=== PATIENT | female | born 2000 | race Caucasian/White ===

== ENCOUNTER 2020-07-15 18:37 | Emergency (ER) | payer OTHER ==
[~2020-07-15 18:37] MED LIST: BENTYL10 MG PO; LEVSIN-SL0.125 MG SL; MOBIC7.5 MG PO; NORCO 5-325 TA1 EACH PO; PREDNISONE20 MG PO; SKELAXIN800 MG PO; ZOFRAN4 MG PO; ZOFRAN8 MG PO; ZYRTEC10 M3 PO
[2020-07-15 20:31] LABS: BASOPHIL 0.3 % (0-2); EOSINOPHIL 1.1 % (0-5); HCT 46.6 % (37.0-47.0); HGB 14.5 g/dl (12.5-16.0); LYMPHOCYTE 27.2 % (15-48); MCH 26.5 pg (25.0-31.0); MCHC 31.1 g/dL (32.0-36.0); MCV 85.2 fL (78.0-100.0); MONOCYTE 6.8 % (0-12); MPV 9.3 fL (6.0-9.5); NEUTROPHIL 64.4 % (41-80); NRBC 0; PLT 382 K/uL (150-400); RBC 5.47 M/uL (4.20-5.40); RDW 13.4 % (11.5-14.0); WBC 6.5 K/uL (4.0-10.5)
[2020-07-15 20:36] LABS: BILIRUBIN NEGATIVE (NEGATIVE); BLOOD NEGATIVE Ery/uL (NEGATIVE); CLARITY CLEAR (CLEAR); COLOR YELLOW (YELLOW); GLUCOSE (U) NORMAL (NORMAL); LEUKOCYTES NEGATIVE Leu/uL (NEGATIVE); NITRITE NEGATIVE (NEGATIVE); PROTEIN NEGATIVE (NEGATIVE); UROBILINOGEN 0.2 mg/dL (0.2-1.0)
[2020-07-15 20:38] LABS: AMPHETAMINES NEGATIVE (NEGATIVE); BARBITURATES NEGATIVE (NEGATIVE); ECSTASY (MDMA) NEGATIVE (NEGATIVE); MARIJUANA (THC) NEGATIVE (NEGATIVE); METHADONE NEGATIVE (NEGATIVE); OPIATES NEGATIVE (NEGATIVE); OXYCODONE NEGATIVE (NEGATIVE)
[2020-07-15 20:44] LABS: ALBUMIN 3.9 g/dL (3.4-5.0); BILIRUBIN - TOTAL 0.4 mg/dL (0.2-1.0); BUN/CREAT RATIO (CALC) 11.8 RATIO; CREATININE 0.68 mg/dL (0.51-0.95); GLOBULIN (CALCULATION) 4.6 g/dL; POTASSIUM 3.8 mmol/L (3.5-5.1); TOTAL PROTEIN 8.5 g/dL (6.4-8.2)
[2020-08-29] MEDS ORDERED: PRISTIQ50 MG PO (11:20)
[2020-08-29] MEDS ORDERED: NEXPLANON68 MG SUBD (11:23)
== END 2020-07-15 21:52 | disposition home or self-care (01) ==
LOC: FER 18:37
PROVIDERS: Emergency Medicine; Nurse Practitioner Family
DX: R10.84 Generalized abdominal pain (principal); R11.2 Nausea with vomiting, unspecified; R19.7 Diarrhea, unspecified; R63.0 Anorexia; F32.9 Major depressive disorder, single episode, unspecified; Z88.6 Allergy status to analgesic agent; Z79.899 Other long term (current) drug therapy
CPT/HCPCS: 36415; 80053; 80305; 81003; 82150; 83690; 85025; 99284

== ENCOUNTER 2020-07-20 03:29 | Emergency (ER) | payer OTHER ==
[2020-07-20 04:58] LABS: BASOPHIL 0.4 % (0-2); BILIRUBIN NEGATIVE (NEGATIVE); BLOOD NEGATIVE Ery/uL (NEGATIVE); CLARITY CLEAR (CLEAR); COLOR YELLOW (YELLOW); EOSINOPHIL 0.7 % (0-5); GLUCOSE (U) NORMAL (NORMAL); HCT 42.5 % (37.0-47.0); HGB 13.5 g/dl (12.5-16.0); LEUKOCYTES NEGATIVE Leu/uL (NEGATIVE); LYMPHOCYTE 25.3 % (15-48); MCH 27.1 pg (25.0-31.0); MCHC 31.8 g/dL (32.0-36.0); MCV 85.2 fL (78.0-100.0); MONOCYTE 6.2 % (0-12); MPV 9.7 fL (6.0-9.5); NEUTROPHIL 67.2 % (41-80); NITRITE NEGATIVE (NEGATIVE); NRBC 0; PLT 351 K/uL (150-400); PROTEIN NEGATIVE (NEGATIVE); RBC 4.99 M/uL (4.20-5.40); RDW 13.3 % (11.5-14.0); SPECIFIC GRAVITY 1.025 (1.001-1.030); UROBILINOGEN 0.2 mg/dL (0.2-1.0); WBC 8.4 K/uL (4.0-10.5); pH 5.5 (5.0-9.0)
[2020-07-20 05:07] LABS: ALBUMIN 3.8 g/dL (3.4-5.0); BILIRUBIN - TOTAL 0.2 mg/dL (0.2-1.0); BUN/CREAT RATIO (CALC) 11.1 RATIO; C-REACTIVE PROTEIN 1.2 mg/dL (<=0.90); CREATININE 0.63 mg/dL (0.51-0.95); GLOBULIN (CALCULATION) 4.2 g/dL; POTASSIUM 3.5 mmol/L (3.5-5.1)
[2020-07-20] MEDS ORDERED: LEVSIN-SL0.125 M1 PO ×3 (07:34→07:43)
[2020-07-20] MEDS ORDERED: PHENERGAN25 M1 PO ×3 (07:34→07:43)
[2020-07-20] MEDS ORDERED: PROMETHEGA12.5 MG/SU PR ×3 (07:34→07:43)
[2020-08-29] MEDS ORDERED: PRISTIQ50 MG PO (11:20)
[2020-08-29] MEDS ORDERED: NEXPLANON68 MG SUBD (11:23)
== END 2020-07-20 07:51 | disposition home or self-care (01) ==
LOC: FER 03:29
PROVIDERS: Emergency Medicine Emergency Medical Services
DX: R10.84 Generalized abdominal pain (principal); R11.2 Nausea with vomiting, unspecified; R19.7 Diarrhea, unspecified; F41.9 Anxiety disorder, unspecified; F32.9 Major depressive disorder, single episode, unspecified; F17.290 Nicotine dependence, other tobacco product, uncomplicated; Z88.6 Allergy status to analgesic agent; Z79.899 Other long term (current) drug therapy
CPT/HCPCS: 36415; 80053; 81003; 82150; 83690; 85025; 86140; C9113; J2270; J2550; J7030; Q9967

== ENCOUNTER → 2020-09-05 | Day surgery (SDC) | payer OTHER ==
[~2020-09-05] MED LIST changes: +AMOXICILLIN500 MG PO; +LEVSIN-SL0.125 M1 PO; +NEXPLANON68 MG SUBD; +PHENERGAN25 M1 PO; +PRISTIQ50 MG PO; +PROMETHEGA12.5 MG/SU PR
[2020-09-05 08:13] LABS: HCG (URINE) SCREEN NEGATIVE (NEGATIVE)
== END | disposition home or self-care (01) ==
LOC: FAS 07:19
PROVIDERS: Student in an Organized Health Care Education/Training Program
DX: R10.84 Generalized abdominal pain (principal); R14.0 Abdominal distension (gaseous); R11.2 Nausea with vomiting, unspecified; R19.7 Diarrhea, unspecified; R63.4 Abnormal weight loss; F41.9 Anxiety disorder, unspecified; F32.9 Major depressive disorder, single episode, unspecified; K58.9 Irritable bowel syndrome, unspecified; M41.9 Scoliosis, unspecified; Z88.8 Allergy status to other drugs, medicaments and biological substances; Z88.6 Allergy status to analgesic agent; Z97.5 Presence of (intrauterine) contraceptive device; Z80.0 Family history of malignant neoplasm of digestive organs; Z79.899 Other long term (current) drug therapy; Z86.59 Personal history of other mental and behavioral disorders; Z98.890 Other specified postprocedural states; Z20.822 Contact with and (suspected) exposure to COVID-19
CPT/HCPCS: 84703; J2250; J2704; J7120

== ENCOUNTER 2020-12-25 21:39 | Emergency (ER) | payer OTHER ==
[~2020-12-25 21:39] MED LIST changes: -AMOXICILLIN500 MG PO
[2020-12-25 22:11] LABS: MONOSPOT (MONONUCLEOSIS) NEGATIVE (NEGATIVE)
[2020-12-25] MEDS ORDERED: AMOXICILLIN500 MG PO (22:25)
== END 2020-12-25 22:41 | disposition home or self-care (01) ==
LOC: FER 21:39
PROVIDERS: Emergency Medicine
DX: J02.9 Acute pharyngitis, unspecified (principal)
CPT/HCPCS: 86308; 87880; 99283

== ENCOUNTER 2021-03-18 04:32 | Emergency (ER) | payer SELFPAY ==
[~2021-03-18 04:32] MED LIST changes: +AMOXICILLIN500 MG PO
[2021-03-18 05:46] LABS: BASOPHIL 0.8 % (0-2); EOSINOPHIL 1.5 % (0-5); HCT 41.9 % (37.0-47.0); HGB 13.5 g/dl (12.5-16.0); LYMPHOCYTE 35.1 % (15-48); MCH 28.2 pg (25.0-31.0); MCHC 32.2 g/dL (32.0-36.0); MCV 87.7 fL (78.0-100.0); MONOCYTE 7.7 % (0-12); MPV 10.4 fL (6.0-9.5); NEUTROPHIL 54.6 % (41-80); NRBC 0; PLT 343 K/uL (150-400); RBC 4.78 M/uL (4.20-5.40); RDW 14.1 % (11.5-14.0); WBC 6.5 K/uL (4.0-10.5)
[2021-03-18 05:59] LABS: ALBUMIN 3.2 g/dL (3.4-5.0); BILIRUBIN - TOTAL 0.3 mg/dL (0.2-1.0); BUN/CREAT RATIO (CALC) 9.1 RATIO; C-REACTIVE PROTEIN 0.3 mg/dL (<=0.90); CREATININE 0.77 mg/dL (0.51-0.95); GLOBULIN (CALCULATION) 3.7 g/dL; MAGNESIUM 2.1 mg/dL (1.8-2.4); POTASSIUM 4.3 mmol/L (3.5-5.1); TOTAL PROTEIN 6.9 g/dL (6.4-8.2)
[2021-03-18 06:16] LABS: BILIRUBIN NEGATIVE (NEGATIVE); BLOOD NEGATIVE Ery/uL (NEGATIVE); CLARITY CLEAR (CLEAR); COLOR YELLOW (YELLOW); GLUCOSE (U) NORMAL (NORMAL); LEUKOCYTES NEGATIVE Leu/uL (NEGATIVE); NITRITE NEGATIVE (NEGATIVE); PROTEIN NEGATIVE (NEGATIVE); UROBILINOGEN 0.2 mg/dL (0.2-1.0)
[2021-03-18] MEDS ORDERED: PERCOCET 5-3251 EACH PO (06:45)
[2021-03-18] MEDS ORDERED: BACLOFEN 10MG T10 MG PO (06:45)
== END 2021-03-18 07:20 | disposition home or self-care (01) ==
LOC: FER 04:32
PROVIDERS: Emergency Medicine Emergency Medical Services
DX: R52 Pain, unspecified (principal); F17.290 Nicotine dependence, other tobacco product, uncomplicated; Z79.1 Long term (current) use of non-steroidal anti-inflammatories (NSAID); Z87.39 Personal history of other diseases of the musculoskeletal system and connective tissue
CPT/HCPCS: 36415; 80053; 81003; 82550; 83735; 84100; 85025; 86140; J1100; J1170; J1885; J2270; J2405; J7120

== ENCOUNTER 2021-05-12 23:31 | Emergency (ER) | payer OTHER ==
[~2021-05-12 23:31] MED LIST changes: +BACLOFEN 10MG T10 MG PO; +PERCOCET 5-3251 EACH PO
== END 2021-05-13 01:22 | disposition home or self-care (01) ==
LOC: FER 23:31
DX: U07.1 COVID-19 (principal); F17.200 Nicotine dependence, unspecified, uncomplicated; Z88.6 Allergy status to analgesic agent
CPT/HCPCS: 99284

== ENCOUNTER 2021-05-14 10:39 | Emergency (ER) | payer OTHER ==
[2021-05-14 12:34] LABS: BASOPHIL 0.4 % (0-2); EOSINOPHIL 7.1 % (0-5); HCT 44.9 % (37.0-47.0); HGB 14.7 g/dl (12.5-16.0); LYMPHOCYTE 38.9 % (15-48); MCH 29.2 pg (25.0-31.0); MCHC 32.7 g/dL (32.0-36.0); MCV 89.3 fL (78.0-100.0); MONOCYTE 12.5 % (0-12); MPV 10.3 fL (6.0-9.5); NEUTROPHIL 41.1 % (41-80); NRBC 0; PLT 265 K/uL (150-400); RBC 5.03 M/uL (4.20-5.40); RDW 13.9 % (11.5-14.0); WBC 2.8 K/uL (4.0-10.5)
[2021-05-14 12:36] LABS: ALBUMIN 3.6 g/dL (3.4-5.0); BILIRUBIN - TOTAL 0.4 mg/dL (0.2-1.0); CREATININE 0.67 mg/dL (0.51-0.95); POTASSIUM 3.9 mmol/L (3.5-5.1); TOTAL PROTEIN 7.6 g/dL (6.4-8.2)
[2021-05-14 12:36] LABS: BILIRUBIN NEGATIVE (NEGATIVE); BLOOD NEGATIVE Ery/uL (NEGATIVE); CLARITY CLOUDY (CLEAR); COLOR YELLOW (YELLOW); GLUCOSE (U) NORMAL (NORMAL); LEUKOCYTES NEGATIVE Leu/uL (NEGATIVE); NITRITE NEGATIVE (NEGATIVE); PROTEIN NEGATIVE (NEGATIVE); SPECIFIC GRAVITY 1.025 (1.001-1.030)
[2021-05-14 12:39] LABS: MARIJUANA (THC) POSITIVE (NEGATIVE)
[2021-05-14 12:40] LABS: AMPHETAMINES NEGATIVE (NEGATIVE); BARBITURATES NEGATIVE (NEGATIVE); ECSTASY (MDMA) NEGATIVE (NEGATIVE); METHADONE NEGATIVE (NEGATIVE); OPIATES NEGATIVE (NEGATIVE); OXYCODONE NEGATIVE (NEGATIVE)
== END 2021-05-14 14:04 | disposition home or self-care (01) ==
LOC: FER 10:39
PROVIDERS: Nurse Practitioner Family
DX: U07.1 COVID-19 (principal); F17.290 Nicotine dependence, other tobacco product, uncomplicated; Z88.6 Allergy status to analgesic agent
CPT/HCPCS: 36415; 70450; 71045; 80053; 80305; 81003; 85025; 87088; J7030